=== PATIENT | female | born 1970 | race Caucasian/White ===

== ENCOUNTER 2022-10-01 15:28 | Outpatient (REF) | payer OTHER, SELFPAY ==
[2022-10-01 15:42] LABS: Basophils Absolute Auto 0.01 K/uL (0.00-0.30); Basophils Percent Auto 0.1 % (0.0-3.0); Eosinophils Absolute Auto 0.02 K/uL (0.00-0.50); Eosinophils Percent Auto 0.3 % (0.0-7.0); Hematocrit 40.1 % (33.0-51.0); Immature Granulocytes Abs Auto 0.03 K/uL (0.00-0.30); Immature Granulocytes Pct Auto 0.4 %; Lymphocytes Percent Auto 9.1 % (20-44); Mean Corpuscular HGB Conc 32 gm/dL (32-36); Mean Corpuscular Hemoglobin 33 pg (26-34); Mean Corpuscular Volume 101 fL (80-100); Monocytes Percent Auto 3.4 % (0.0-11.0); Neutrophils Percent Auto 86.7 % (42.0-72.0); Platelet Count* 272 K/uL (140-440); RDW Coefficient of Variation % 13.1 % (11.5-15.5); Red Blood Count 3.96 m/uL (4.00-5.20); White Blood Count* 7.61 K/uL (4.50-11.00)
[2022-10-01 15:44] LABS: Albumin* 4.3 g/dL (3.3-5.0)
[2022-10-01 15:47] LABS: Aspartate Amino Transferase* 21 U/L (12-35); Creatinine* 0.9 mg/dL (0.5-1.5); Estimated Glomerular Filt Rate 77 ml/min
[2022-10-01 15:48] LABS: Alanine Aminotransferase* 21 U/L (4-35)
[2022-10-01 15:50] LABS: Slide Review Reflex No
== END 2022-10-01 15:29 | disposition home or self-care (01) ==
LOC: NPINS 15:28
PROVIDERS: PCP Physician Assistant Medical
DX: Z79.899 Other long term (current) drug therapy (principal)
CPT/HCPCS: 82040; 82565; 84450; 84460; 85025

== ENCOUNTER 2023-02-04 22:03 | Outpatient (REF) | payer OTHER, SELFPAY ==
[2023-02-04 22:53] LABS: Eosinophils Percent Auto 4.1 % (0.0-7.0); Hematocrit 40.2 % (33.0-51.0); Mean Corpuscular HGB Conc 32 gm/dL (32-36); Mean Corpuscular Hemoglobin 33 pg (26-34); Mean Corpuscular Volume 101 fL (80-100); Monocytes Percent Auto 12.2 % (0.0-11.0); Neutrophils Percent Auto 36.1 % (42.0-72.0); Platelet Count* 272 K/uL (140-440); RDW Coefficient of Variation % 13.3 % (11.5-15.5); White Blood Count* 3.68 K/uL (4.50-11.00)
[2023-02-04 22:54] LABS: Albumin* 4.4 g/dL (3.3-5.0); Basophils Percent Auto 0.3 % (0.0-3.0); Immature Granulocytes Pct Auto 0.3 %; Slide Review Reflex No
[2023-02-04 22:56] LABS: Creatinine* 0.8 mg/dL (0.5-1.5); Estimated Glomerular Filt Rate 89 ml/min
[2023-02-04 22:57] LABS: Alanine Aminotransferase* 20 U/L (4-35); Aspartate Amino Transferase* 24 U/L (12-35)
== END 2023-02-04 22:04 | disposition home or self-care (01) ==
LOC: NPINS 22:03
PROVIDERS: PCP Physician Assistant Medical
DX: Z79.899 Other long term (current) drug therapy (principal)
CPT/HCPCS: 82040; 82565; 84450; 84460; 85025

== ENCOUNTER 2023-07-25 13:58 | Outpatient (REF) | payer OTHER, SELFPAY ==
[2023-07-25 14:55] LABS: Basophils Absolute Auto 0.01 K/uL (0.00-0.30); Basophils Percent Auto 0.2 % (0.0-3.0); Eosinophils Absolute Auto 0.16 K/uL (0.00-0.50); Eosinophils Percent Auto 2.9 % (0.0-7.0); Hematocrit 41.1 % (33.0-51.0); Hemoglobin* 13.3 gm/dL (12.0-16.0); Immature Granulocytes Abs Auto 0.01 K/uL (0.00-0.30); Immature Granulocytes Pct Auto 0.2 %; Lymphocytes Absolute Auto 1.75 K/uL (0.90-2.90); Lymphocytes Percent Auto 31.5 % (20-44); Mean Corpuscular HGB Conc 32 gm/dL (32-36); Mean Corpuscular Hemoglobin 33 pg (26-34); Mean Corpuscular Volume 102 fL (80-100); Monocytes Percent Auto 9.5 % (0.0-11.0); Neutrophils Absolute Auto 3.09 K/uL (1.7-7.0); Neutrophils Percent Auto 55.7 % (42.0-72.0); Platelet Count* 320 K/uL (140-440); RDW Coefficient of Variation % 13.2 % (11.5-15.5); Red Blood Count 4.05 m/uL (4.00-5.20); White Blood Count* 5.55 K/uL (4.50-11.00)
[2023-07-25 14:58] LABS: Slide Review Reflex No
[2023-07-25 14:59] LABS: Albumin* 4.5 g/dL (3.3-5.0)
[2023-07-25 15:02] LABS: Alanine Aminotransferase* 23 U/L (4-35); Aspartate Amino Transferase* 29 U/L (12-35); Creatinine* 0.8 mg/dL (0.5-1.5); Estimated Glomerular Filt Rate 89 ml/min
== END 2023-07-25 13:59 | disposition home or self-care (01) ==
LOC: NPINS 13:58
PROVIDERS: PCP Physician Assistant Medical
DX: Z79.899 Other long term (current) drug therapy (principal)
CPT/HCPCS: 82040; 82565; 84450; 84460; 85025